=== PATIENT | male | born 1980 | race Caucasian/White ===

== ENCOUNTER 2018-06-07 14:12 | Emergency (ER) ==
[2018-06-07 14:12] VITALS: BMI 23.0
[2018-06-07 14:14] VITALS: BP 113/77; TEMP 96.9
[2018-06-07] MEDS ORDERED: TORADOL IM STA (14:57)
--- NOTE | 2018-06-07 14:59 | ED.PDOC ---
General ED Provider: Dr. ANGELO STRANGE Chief Complaint: Tooth Problem Stated Complaint: Tooth ache,multiple sites in oral cavity. Schedule to see oral surgeon in next week but could not stand the pain so came for evauation, Time Seen by Physician: 14:30 Mode of Arrival: Walk-In Information Source: Patient Exam Limitations: No limitations Primary Care Provider: VEGA DIMAS Nursing and Triage Documentation Reviewed and Agree: Yes Does patient meet sepsis criteria?: No System Inflammatory Response Syndrome: Not Applicable Sepsis Protocol: For patient's 13 years and over: Temp is 96.8 and below OR 101 and greater Pulse >90 BPM Resp >20/minute Acutely Altered Mental Status Are patient's symptoms suggestive of a new infection, such as: -Pneumonia -Skin, Soft Tissue -Endocarditis -UTI -Bone, Joint Infection -Implantable Device -Acute Abdominal Infection -Wound Infection -Meningitis -Blood Stream Catheter Infection -Unknown EENT Complaint Exam - Dental/Oral Complaint/Exam Mechanism of Injury: No known trauma Onset/Duration: past several weeks Symptoms Are: Worse Timing: Constant Initial Severity: Moderate Current Severity: Severe Location: Mouth mandibular /maxillary ridge Character: Reports: Aching, Throbbing Aggravating: Reports: Chewing Alleviating: Reports: None Associated Signs and Symptoms: Reports: Foul taste in mouth Related History: Reports: Similar episode Cardiac Risk Factors: Reports: None Dental/Oral Surgical History: Reports: None Tooth Findings: Present: Percussion tenderness, Gross decay, Gross caries, Abcess, Cellulitis Cervical Lymphadenopathy Present: No Facial Swelling Present: Yes (minimal rt> lt facial) Bleeding Present: No Septal Hematoma: No Foreign Body Present: No Dysphagia Present: No Drooling Present: No Asymmetrical Tonsillar Swelling Present: No Uvula Midline: No Shawna-tonsillar Fluctuence: No Trismus Present: No Palatal Petechiae Present: No Scarlatinaform Rash Present: No Lesions: Present: Lip. Absent: Gums, Tongue, Buccal Mucosa, Pharynx Exanthem: Absent: Lip, Gums, Tongue, Buccal Mucosa, Pharynx Vesicles: Absent: Lip, Gums, Tongue, Buccal Mucosa, Pharynx Differential Diagnoses: Gingivitis, Odontogenic Pain, Periodontic Disease, Sinusitis Review of Systems - Review Of Systems Constitutional: Reports: No symptoms Eyes: Reports: No symptoms Ears, Nose, Mouth, Throat: Reports: No symptoms, Mouth pain, Mouth swelling Respiratory: Reports: No symptoms Cardiac: Reports: No symptoms GI: Reports: No symptoms : Reports: No symptoms Musculoskeletal: Reports: No symptoms Skin: Reports: No symptoms Neurological: Reports: No symptoms Endocrine: Reports: No symptoms Hematologic/Lymphatic: Reports: No symptoms All Other Systems: Reviewed and Negative Past Medical History - Past Medical History Previously Healthy: Yes Endocrine: Reports: None Cardiovascular: Reports: None Respiratory: Reports: None Hematological: Reports: None Gastrointestinal: Reports: None Genitourinary: Reports: None Neuro/Psych: Reports: None Musculoskeletal: Reports: None Cancer: Reports: None - Surgical History General Surgical History: Reports: None - Family History Family History: Reports: None - Social History Smoking Status: Light tobacco smoker Hx Substance Use: No Alcohol Screening: None Physical Exam - Physical Exam Appearance: Well-appearing, No pain distress, Well-nourished, Obese Eyes: VERONICA, EOMI, Conjunctiva clear ENT: Ears normal, Nose normal, Oropharynx normal Respiratory: Airway patent, Breath sounds clear, Breath sounds equal, Respirations nonlabored Cardiovascular: RRR, Pulses normal, No rub, No murmur GI/: Soft, Nontender, No masses, Bowel sounds normal, No Organomegaly Musculoskeletal: Normal strength, ROM intact, No edema, No calf tenderness Skin: Warm, Dry, Normal color Neurological: Sensation intact, Motor intact, Reflexes intact, Cranial nerves intact, Alert, Oriented Psychiatric: Affect appropriate, Mood appropriate Interpretation - Radiology Interpretation Radiology Interpretation By: Radiologist Exam Interpreted: CT Scan (periapical changes suggestive of multiple abascess's/ maxillary sinusitis) Critical Care Note - Critical Care Note Total Time (mins): 0 Course - Course Vital Signs: Temp Pulse Resp BP Pulse Ox 06/07/18 14:12 96.9 F L 88 20 113/77 97 Departure - Departure Time of Disposition: 15:45 Disposition: HOME SELF-CARE Discharge Problem: Dental abscess, Maxillary sinusitis, acute Instructions: Dental Abscess (ED), Sinusitis (ED) Condition: Fair Pt referred to PMD for follow-up: Yes IPMP verified?: No Additional Instructions: Rinse mouth seveal times daily with warm salt water Meds as directed Follow up surgeon as anticipated, Prescriptions: Amoxicillin/Potassium Clav [Augmentin 875-125 Tablet] 1 each PO BID 10 Days #20 tablet Ketorolac Tromethamine [Toradol] 10 mg PO Q6H #20 tablet Methylprednisolone [Medrol Dosepak] 4 mg PO DAILY #1 tab.ds.pk Allergies/Adverse Reactions: Allergies No Known Allergies Allergy (Verified 06/07/18 14:14) Home Medications: Ambulatory Orders Amoxicillin/Potassium Clav [Augmentin 875-125 Tablet] 1 each PO BID 10 Days #20 tablet 06/07/18 Ketorolac Tromethamine [Toradol] 10 mg PO Q6H #20 tablet 06/07/18 Methylprednisolone [Medrol Dosepak] 4 mg PO DAILY #1 tab.ds.pk 06/07/18 Disposition Discussed With: Patient
--- NOTE | 2018-06-07 15:30 | CT ---
Exam: CT scan of the maxillofacial area without contrast. Date: 06/07/2018. Comparison: None. HISTORY: Facial pain and swelling. TECHNIQUE: Helical scan of the maxillofacial area was performed without contrast. FINDINGS: The soft tissues overlying the maxillofacial area appear within normal limits. There is ex tensive mucoperiosteal thickening in the maxillary sinuses bilaterally, right more than left. The fr ontal sinuses, ethmoid air cells and sphenoid sinuses are clear. The septum is midline. Middle turb inates have a normal orientation. There is fenestration or resection of a portion of the medial wall of the right maxillary sinus. There is no contact of the nasal septum and turbinate mucosa. The ma stoid air cells are clear. Caries are present in multiple maxillary and multiple mandibular teeth wi th periapical lucencies surrounding the roots of what may be the right first and second mandibular pr e molars and left second pre molar and possibly the first mandibular molar. Impression: There are multiple caries in the teeth bilaterally including periapical lucencies surrou nding both maxillary and mandibular teeth, any of which could represent dental abscesses. In additio n there is extensive mucoperiosteal thickening in the right maxillary sinus and to a lesser extent in the left maxillary sinus that may represent chronic and/or acute bilateral maxillary sinusitis. Den reggie consultation should be considered.
[2018-06-07] MEDS ORDERED: TORADOL PO STA (15:46)
== END 2018-06-07 15:52 | disposition home or self-care (01) ==
LOC: ED 14:12
DX: J01.00 Acute maxillary sinusitis, unspecified (principal); K04.7 Periapical abscess without sinus; K02.7 Dental root caries; F17.210 Nicotine dependence, cigarettes, uncomplicated
CPT/HCPCS: 96372; 99282